=== PATIENT | male | born 1960 | race African-American/Black ===

== ENCOUNTER 2019-02-10 00:22 | Emergency (ER) | payer MEDICAID, OTHER ==
[~2019-02-10] VITALS: Ht 185.4 cm; Wt 88.9 kg
[~2019-02-10 00:22] MED LIST: ABILIFY2 MG ORAL; FLOMAX0.4 MG ORAL; HYDROCHLOROTHIA25 MG ORAL; IBUPROFEN600 MG ORAL; NORCO 5-325 TA1 EACH ORAL; RISPERDAL2 MG ORAL; TAMSULOSIN HCL0.4 MG ORAL
[2019-02-10 01:00] VITALS: BP 158/97
--- NOTE | 2019-02-10 01:00 | NUR ---
ER Nurse Note: Pt came from home c/o prostate pain. Pt stated he "just needs prostate medication". Pt refused treatment to drain bladder; pt reported he has not fully urinated in one day. Pt denies pain meds, exam and states "he is fully healthy". ERMD at pt side; will [facility] to [facility].
--- NOTE | 2019-02-10 01:06 | Emergency Room Report ---
History of Present Illness General Chief Complaint: Male Urogenital Problems Source: Patient Present Illness HPI The patient presents with difficulty urinating. He is run out of his Flomax. He does not have an appointment until February by . This is because his doctors are changing. He denies dysuria, fever, hematuria. He is able to produce urine but it weak stream and he has to bear down in order to urinate. He is refusing further evaluation at this time. The patient reports that he was evaluated with lab test a week ago. He states there were no problems at that time. No fevers, chills, chest pain, palpitations, nausea, vomiting, diarrhea, abdominal pain, shortness of breath, depression, visual changes, headache. Allergies: Coded Allergies: No Known Allergies (Unverified , 02/10/19) Patient History Past Medical History: see triage record Social History: Reports: smoking Social History Narrative With significant other Reviewed Nursing Documentation: PMH: Agreed; PSxH: Agreed Nursing Documentation-PMH Hx Hypertension: Yes Hx Pacemaker: No Hx Asthma: No Hx COPD: No Hx Diabetes: No Hx Cancer: No Hx Dialysis: No Hx Neurological Problems: No Hx Cerebrovascular Accident: No Hx Seizures: No Review of Systems All Other Systems: negative except mentioned in HPI Physical Exam Vital Signs Date Time Temp Pulse Resp B/P (MAP) Pulse Ox O2 Delivery O2 Flow Rate FiO2 02/10/19 00:40 97.9 76 20 158/97 (117) 95 Room Air Sp02 EP Interpretation: reviewed, normal General Appearance: normal inspection, well appearing, no apparent distress Head: normocephalic, atraumatic Eyes: bilateral eye normal inspection, bilateral eye PERRL ENT: hearing grossly normal, normal voice, moist mucus membranes Neck: full range of motion, supple Respiratory: lungs clear, normal breath sounds, no respiratory distress, speaking full sentences Cardiovascular #1: regular rate, rhythm Cardiovascular #2: 2+ radial (R) Gastrointestinal: normal inspection, normal bowel sounds, non tender, soft, no mass, non-distended Genitourinary: no CVA tenderness Musculoskeletal: no calf tenderness Neurologic: alert, oriented x3, grossly normal Psychiatric: mood/affect normal Skin: no rash Medical Decision Making Diagnostic Impression: Primary Impression: BPH (benign prostatic hyperplasia) Qualified Codes: N40.1 - Benign prostatic hyperplasia with lower urinary tract symptoms ER Course Patient presents with request of refill of Flomax. Differential includes benign prostatic hypertrophy, urinary retention, urinary tract infection, medication interaction amongst others. Patient refusing labs. I discussed the risks of renal failure and unrecognized urinary tract infection. He says his labs were normal a week ago. The patient is given a dose of Flomax here. Patient stable for outpatient observation and treatment Last Vital Signs Date Time Temp Pulse Resp B/P (MAP) Pulse Ox O2 Delivery O2 Flow Rate FiO2 02/10/19 01:28 97.9 86 20 158/97 95 Room Air Status: improved Disposition: HOME, SELF-CARE Condition: Improved Scripts Tamsulosin HCl (Flomax) 0.4 Mg Cap.er.24h 0.8 MG ORAL DAILY, #20 CAP Prov: Rich Martinez MD 02/10/19 Rich Martinez MD Feb 10, 2019 01:06
[2019-02-10] MEDS ORDERED: FLOMAX0.4 MG ORAL (01:08)
[2019-02-10] MEDS ORDERED: Tamsulosin 0.4mg cap ORAL ONE (01:13)
[2019-02-10 01:28] VITALS: BP 158/97
--- NOTE | 2019-02-10 01:28 | NUR ---
ER Nurse Note: Pt seen, treated, medically cleared for discharge by ERMD. Discharge instuctions and prescriptions given with repeat verbalization by pt. All orders completed per ERMD orders; pt was able to urinate after medications administered. Pt able to walk with steady gait after urination. Pt a&ox4, VSS, no signs of distress. Pt denies pain. ID band removed. Pt ambulaitory with steady gait, left with all belongings, left with own transportation.
[2019-02-10] MEDS ORDERED: Tamsulosin 0.4mg cap ORAL SCH (21:00)
== END 2019-02-10 01:28 | disposition home or self-care (01) ==
LOC: EMR 01:00
DX: N40.0 Benign prostatic hyperplasia without lower urinary tract symptoms (principal); I10 Essential (primary) hypertension
CPT/HCPCS: 99282

== ENCOUNTER 2019-03-11 04:31 | Emergency (ER) | payer MEDICAID ==
[~2019-03-11] VITALS: Ht 185.4 cm; Wt 88.5 kg
[2019-03-11] MEDS ORDERED: Tamsulosin 0.4mg cap ORAL ONE (04:45)
[2019-03-11] MEDS ORDERED: FLOMAX0.4 MG ORAL (04:46)
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
== END 2019-03-11 05:04 | disposition home or self-care (01) ==
LOC: EMR 04:48
DX: N40.1 Benign prostatic hyperplasia with lower urinary tract symptoms (principal); Z76.0 Encounter for issue of repeat prescription; I10 Essential (primary) hypertension
CPT/HCPCS: 99282

== ENCOUNTER 2019-03-19 05:39 | Emergency (ER) | payer MEDICAID ==
[~2019-03-19] VITALS: Ht 185.4 cm; Wt 88.5 kg
[2019-03-19 05:55] VITALS: BP 156/95
--- NOTE | 2019-03-19 05:55 | NUR ---
ED Nurse Note: pt walked in ER. stating he needs flomax refil until he can see his primary MD. LAUREANO. pt alert x4.
[2019-03-19] MEDS ORDERED: FLOMAX0.4 MG ORAL (06:03)
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
[2019-03-19] MEDS ORDERED: Tamsulosin 0.4mg cap ORAL ONE ×2 (06:05→06:15)
[2019-03-19 06:08] VITALS: BP 158/94
--- NOTE | 2019-03-19 06:10 | NUR ---
ER DISCHARGE NOTE: Patient is cleared to be discharged per ERMD, pt is aox4, on room air, with stable vital signs. pt was given dc and prescription instructions, pt was able to verbalize understanding, pt id band removed without complications. pt is able to ambulate with steady gait. pt took all belongings.
== END 2019-03-19 06:08 | disposition home or self-care (01) ==
LOC: EMR 06:06
DX: N40.1 Benign prostatic hyperplasia with lower urinary tract symptoms (principal); R39.14 Feeling of incomplete bladder emptying; I10 Essential (primary) hypertension
CPT/HCPCS: 99282

== ENCOUNTER 2019-05-01 05:07 | Emergency (ER) | payer MEDICAID ==
[~2019-05-01] VITALS: Ht 185.4 cm; Wt 88.5 kg
[2019-05-01 05:26] VITALS: BP 119/79
[2019-05-01] MEDS ORDERED: Tamsulosin 0.4mg cap ORAL STA (05:26)
--- NOTE | 2019-05-01 05:27 | Emergency Room Report ---
History of Present Illness General Chief Complaint: Medication Refill Source: Patient Present Illness HPI Patient presents requesting refill of Flomax. He states he is having difficulty urinating. He ran out a Flomax 2 days ago. He denies any fevers or chills or dysuria. There is no nausea, vomiting or diarrhea. He states he overslept the appointment to refill his meds with his own doctors. He denies pain at this time. The patient's been seen here multiple times for the same request. Patient is on antipsychotic medications. Allergies: Coded Allergies: No Known Allergies (Unverified , 02/10/19) Patient History Past Medical History: see triage record Social History: Reports: smoking - Although denied to triage nurse Social History Narrative Lives at home - Reviewed Nursing Documentation: PMH: Agreed; PSxH: Agreed Nursing Documentation-PMH Hx Hypertension: Yes Hx Pacemaker: No Hx Asthma: No Hx COPD: No Hx Diabetes: No Hx Cancer: No Hx Dialysis: No Hx Neurological Problems: No Hx Cerebrovascular Accident: No Hx Seizures: No Review of Systems Constitutional: Reports: see HPI Gastrointestinal: Denies: diarrhea, nausea, vomiting Genitourinary: Reports: see HPI Psychiatric: Reports: see HPI Physical Exam Vital Signs Date Time Temp Pulse Resp B/P (MAP) Pulse Ox O2 Delivery O2 Flow Rate FiO2 05/01/19 05:16 98.6 77 18 119/79 (92) 99 Room Air Sp02 EP Interpretation: reviewed, normal General Appearance: well appearing, no apparent distress, GCS 15 Head: normocephalic Eyes: bilateral eye normal inspection, bilateral eye PERRL ENT: moist mucus membranes Neck: full range of motion, supple Respiratory: normal inspection Cardiovascular #1: regular rate, rhythm Gastrointestinal: normal inspection Genitourinary: no CVA tenderness Musculoskeletal: gait/station normal Neurologic: alert, grossly normal Psychiatric: mood/affect normal - Poor insight Skin: no rash Medical Decision Making Diagnostic Impression: Primary Impression: Benign prostatic hyperplasia Qualified Codes: N40.1 - Benign prostatic hyperplasia with lower urinary tract symptoms; R39.11 - Hesitancy of micturition Additional Impression: Encounter for medication refill ER Course Patient with BPH presents requesting med refill. Patient is not toxic and exam and vital signs are stable. A dose of Flomax is given to the patient. No symptoms of infection at this time. Discussed with patient the need for his following up with his own doctors. He lacks the insight that he is responsible for making sure he gets his medications from his doctors. Patient stable for outpatient observation and treatment. Last Vital Signs Date Time Temp Pulse Resp B/P (MAP) Pulse Ox O2 Delivery O2 Flow Rate FiO2 05/01/19 05:36 98.6 76 18 119/79 99 Room Air Status: improved Disposition: HOME, SELF-CARE Condition: Stable Scripts Tamsulosin HCl (Flomax) 0.4 Mg Cap.er.24h 0.8 MG ORAL DAILY, #40 CAP Prov: Rich Martinez MD 05/01/19 Rich Martinez MD May 01, 2019 05:27
[2019-05-01] MEDS ORDERED: FLOMAX0.4 MG ORAL (05:29)
[2019-05-01 05:36] VITALS: BP 119/79
== END 2019-05-01 05:30 | disposition home or self-care (01) ==
LOC: EMR 05:27
DX: N40.1 Benign prostatic hyperplasia with lower urinary tract symptoms (principal); R39.11 Hesitancy of micturition; F17.200 Nicotine dependence, unspecified, uncomplicated; I10 Essential (primary) hypertension; Z76.0 Encounter for issue of repeat prescription
CPT/HCPCS: 99282

== ENCOUNTER 2019-10-31 21:10 | Emergency (ER) | payer MEDICAID ==
[~2019-10-31] VITALS: Ht 185.4 cm; Wt 88.5 kg
--- NOTE | 2019-10-31 21:20 | NUR ---
ED Nurse Note: pt ambulated into ED from home CO pain in penis and penile shaft with redness and minimal swelling. PT VSS with elevated HR. PT states he woke up an hour prior to arriving at hospital and noticed the pain and redness. Awaiting ERMD.
--- NOTE | 2019-10-31 21:23 | NUR ---
ED Nurse Note: ERMD at bedside
[2019-10-31 21:25] VITALS: BP 143/90
[2019-10-31] MEDS ORDERED: FLOMAX0.4 MG ORAL (21:34)
[2019-10-31] MEDS ORDERED: CEPHALEXIN500 MG ORAL (21:34)
--- NOTE | 2019-10-31 21:38 | Emergency Room Report ---
History of Present Illness General Chief Complaint: Male Urogenital Problems Source: Patient Present Illness HPI Patient presents with complaints of irritation to the foreskin area He noticed this for the past several days Denies any penile discharge denies any pain with urination Denies any fevers or chills denies any abdominal pain Denies any vomiting or diarrhea patient also asking for refill of Flomax As he was not able to see his primary physician COVID-19 risk:Contact w/high r: No COVID-19 risk:Travel to affect: No Has patient experienced jim: No Allergies: Coded Allergies: No Known Allergies (Unverified , 02/10/19) Patient History Past Medical History: see triage record Reviewed Nursing Documentation: PMH: Agreed; PSxH: Agreed Nursing Documentation-PMH Past Medical History: No History, Except For Hx Hypertension: Yes Hx Pacemaker: No Hx Asthma: No Hx COPD: No Hx Diabetes: No Hx Cancer: No Hx Dialysis: No History Of Psychiatric Problem: Yes - bipolar Hx Neurological Problems: No Hx Cerebrovascular Accident: No Hx Seizures: No Review of Systems All Other Systems: negative except mentioned in HPI Physical Exam Vital Signs Date Time Temp Pulse Resp B/P (MAP) Pulse Ox O2 Delivery O2 Flow Rate FiO2 10/31/19 21:19 98.4 106 18 143/90 (107) 95 Room Air Sp02 EP Interpretation: reviewed, normal General Appearance: well appearing, no apparent distress Head: normocephalic, atraumatic Eyes: bilateral eye PERRL, bilateral eye EOMI ENT: hearing grossly normal, normal pharynx Neck: full range of motion Respiratory: no respiratory distress, no retraction, no accessory muscle use Gastrointestinal: normal bowel sounds, non tender, soft, no mass, no organomegaly, non-distended, no guarding, no hernia, no pulsatile mass, no rebound Genitourinary: other - Evidence of some mild erythema and irritation of the foreskin consistent with balanitis Musculoskeletal: normal inspection Neurologic: motor strength/tone normal, child care director III-XII nml as tested, oriented x3 , sensory intact, responsive Psychiatric: mood/affect normal Skin: other - As above Lymphatic: normal inspection, no adenopathy Medical Decision Making Diagnostic Impression: Primary Impression: balanitis ER Course Given the patient's history and findings it is consistent with balanitis patient is encouraged to follow-up with primary doctor for further STD testing as needed At this time no complaints of penile discharge Or fever Patient was provided discharge instructions also given a refill for his Flomax that he requested Last Vital Signs Date Time Temp Pulse Resp B/P (MAP) Pulse Ox O2 Delivery O2 Flow Rate FiO2 10/31/19 21:19 98.4 106 18 143/90 (107) 95 Room Air Status: unchanged Disposition: HOME, SELF-CARE Condition: Improved Scripts Tamsulosin HCl (Flomax) 0.4 Mg Cap.er.24h 0.4 MG ORAL BID, #30 CAP Prov: Chloé García DO 10/31/19 Cephalexin* (KEFLEX*) 500 Mg Capsule 500 MG ORAL EVERY 6 HOURS for 5 Days, CAP Prov: Chloé García DO 10/31/19 Referrals: [facility] Patient Instructions: Lisa Additional Instructions: Patient is provided with the discharge instructions notified to follow up with primary doctor in the next 2-3 days otherwise return to the er with any worsening symptoms. Please note that this report is being documented using [employer] technology. This can lead to erroneous entry secondary to incorrect interpretation by the dictating instrument. Chloé García DO Oct 31, 2019 21:38
[2019-10-31 21:43] VITALS: BP 143/90
--- NOTE | 2019-10-31 21:43 | NUR ---
ER DISCHARGE NOTE: Patient is cleared to be discharged home per ERMD, pt is aox4, on room air, with stable vital signs. pt was given dc and prescription instructions, pt was able to verbalize understanding, pt id band removed. pt is able to ambulate with steady gait. pt took all belongings.
== END 2019-10-31 21:43 | disposition home or self-care (01) ==
LOC: EMR 21:35
DX: N48.1 Balanitis (principal); I10 Essential (primary) hypertension; F31.9 Bipolar disorder, unspecified
CPT/HCPCS: 99282

== ENCOUNTER 2019-11-26 11:29 | Emergency (ER) | payer MEDICAID ==
[~2019-11-26] VITALS: Ht 185.4 cm; Wt 88.0 kg
[~2019-11-26 11:29] MED LIST changes: +CEPHALEXIN500 MG ORAL
[2019-11-26 11:45] VITALS: BP 149/97
--- NOTE | 2019-11-26 11:46 | NUR ---
ED Nurse Note: wheeled in to ED for medrefill for Flomax 4mg BID. Denies any pain, SOB/CP/retention.
[2019-11-26] MEDS ORDERED: FLOMAX0.4 MG ORAL (11:47)
[2019-11-26 11:51] VITALS: BP 149/97
--- NOTE | 2019-11-26 11:52 | Emergency Room Report ---
History of Present Illness General Chief Complaint: Medication Refill Source: Patient Present Illness HPI Disclaimer: Please note that this report is being documented using [employer] technology. This can lead to erroneous entry secondary to incorrect interpretation by the dictating instrument. HPI: 59-year-old male history of BPH presents for evaluation of medication refill. He typically takes 0.8 mg of tamsulosin daily but ran out 2 days ago. Unable to refill his medications at clinic over the closings due to the jim virus pandemic. He states his urination is getting slightly more difficult but denies abdominal pain, dysuria, hematuria, fever, chills or other changes in his health. Allergies: Coded Allergies: No Known Allergies (Unverified , 02/10/19) COVID-19 Screening Contact w/high risk pt: No Recent Travel to affected area: No Experienced COVID-19 symptoms?: No Nursing Documentation-PMH Hx Hypertension: Yes Hx Pacemaker: No Hx Asthma: No Hx COPD: No Hx Diabetes: No Hx Cancer: No Hx Dialysis: No Hx Neurological Problems: No Hx Cerebrovascular Accident: No Hx Seizures: No Review of Systems All Other Systems: negative except mentioned in HPI Physical Exam Vital Signs Date Time Temp Pulse Resp B/P (MAP) Pulse Ox O2 Delivery O2 Flow Rate FiO2 11/26/19 11:40 97.9 82 19 149/97 (114) 97 Room Air General: Awake and alert, no acute distress HEENT: NC/AT. EOMI. Resp: Normal work of breathing Skin: Intact. No abrasions, laceration or rash over the exposed skin MSK: Normal tone and bulk. Moving all extremities. No obvious deformity. Neuro: Awake and alert. Mentating appropriately Medical Decision Making Diagnostic Impression: Primary Impression: Encounter for medication refill ER Course 59-year-old male presents for evaluation of medication refill of tamsulosin after running out 2 days ago. No acute distress, no other complaints. Unable to see his PMD or clinic due to the closings over coronavirus. We will refill his tamsulosin for a month. He is well-appearing otherwise and do not believe he requires emergent labs or imaging at this time. We will follow-up with his PMD. Instructed to return with new or worsening symptoms. He understands and agrees with this treatment plan. Last Vital Signs Date Time Temp Pulse Resp B/P (MAP) Pulse Ox O2 Delivery O2 Flow Rate FiO2 4/13/20 11:45 97.9 82 19 149/97 97 Room Air Disposition: HOME, SELF-CARE Condition: Stable Scripts Tamsulosin HCl (Flomax) 0.4 Mg Cap.er.24h 0.8 MG ORAL DAILY for 30 Days, #60 CAP Prov: Nakul Dai MD 11/26/19 Additional Instructions: Please follow-up with your primary care doctor in the next 1 to 3 days to discuss this emergency department visit and for reevaluation. If you have any new or worsening symptoms please return to the emergency department for reevaluation. Please note that this report is being documented using [employer] technology. This can lead to erroneous entry secondary to incorrect interpretation by the dictating instrument. Nakul Dai MD Nov 26, 2019 11:52
--- NOTE | 2019-11-26 11:52 | NUR ---
ED Nurse Note: Pt cleared by health care Provider for discharge. DC instructions/prescription was given and explained to pt and verbalized understanding of teachings. All medical deviecs such as ID band removed. Pt is AAO x4, ambulatory and left with all personal belongings.
== END 2019-11-26 11:55 | disposition home or self-care (01) ==
LOC: EMR 11:50
DX: Z76.0 Encounter for issue of repeat prescription (principal); R39.198 Other difficulties with micturition; I10 Essential (primary) hypertension
CPT/HCPCS: 99282

== ENCOUNTER 2020-04-15 12:47 | Emergency (ER) | payer MEDICAID ==
[~2020-04-15] VITALS: Ht 185.4 cm; Wt 88.5 kg
[2020-04-15] MEDS ORDERED: Morphine Sulfate 2mg/ml Inj(IV/IM USE ONLY) IVP ONE (13:00)
[2020-04-15] MEDS ORDERED: Omnipaque-300 100ml vial INJ PRN (13:00)
--- NOTE | 2020-04-15 13:10 | NUR ---
ED Nurse Note: pt walked in to ER from home due to LLQ pain x3 days with diarrhea and gradually got worse. pt aao x4 and ambulatory. pt cooperative but grimacing for severe abdominal pain. pt denied chest pain, SOB, cough, N/V. skin clean and intact.
[2020-04-15 13:31] LABS: BASOPHILS % (AUTO) 1.1 % (0.0-2.0); EOSINOPHILS % (AUTO) 4.4 % (0.0-3.0); HEMATOCRIT 49.3 % (42.0-52.0); HEMOGLOBIN 16.1 G/DL (14.2-18.0); LYMPHOCYTES % (AUTO) 29.6 % (20.0-45.0); MEAN CORPUSCULAR VOLUME 87 FL (80-99); MONOCYTES % (AUTO) 6.8 % (1.0-10.0); NEUTROPHILS % (AUTO) 58.2 % (45.0-75.0); PLATELET COUNT 175 K/UL (150-450); RED BLOOD COUNT 5.65 M/UL (4.70-6.10); RED CELL DISTRIBUTION WIDTH 12.3 % (11.6-14.8)
[2020-04-15 13:40] LABS: ANION GAP 8 mmol/L (5-15); BLOOD UREA NITROGEN 13 mg/dL (7-18); CALCIUM 8.7 MG/DL (8.5-10.1); CARBON DIOXIDE 28 MMOL/L (21-32); CHLORIDE 107 MMOL/L (98-107); CREATININE 1.3 MG/DL (0.55-1.30); POTASSIUM 3.6 MMOL/L (3.5-5.1); SODIUM 143 MMOL/L (136-145)
--- NOTE | 2020-04-15 13:40 | NUR ---
Note souleymane in EDM - 04/15/20 at 1341 by [email or web address] ED Nurse Note: Assisting primary RN for meal break. U/S tech at bedside. Encouraged pateint to provide us urine sample. Urinal at bedside.
--- NOTE | 2020-04-15 13:40 | NUR ---
ED Nurse Note: Assisting primary RN for meal break. U/S tech at bedside. Encouraged pateint to provide us urine sample. Urinal at bedside.
--- NOTE | 2020-04-15 13:42 | NUR ---
ED Nurse Note: Assisting primary RN for meal break. U/S tech at bedside.
[2020-04-15 13:45] LABS: ALANINE AMINOTRANSFERASE 27 U/L (12-78); ALBUMIN 3.3 G/DL (3.4-5.0); ALKALINE PHOSPHATASE 98 U/L (46-116); ASPARTATE AMINO TRANSFERASE 17 U/L (15-37); BILIRUBIN,TOTAL 0.2 MG/DL (0.2-1.0); CREATINE KINASE 265 U/L (26-308)
--- NOTE | 2020-04-15 14:00 | NUR ---
ED Nurse Note: US done at bedside.
--- NOTE | 2020-04-15 14:02 | Emergency Room Report ---
History of Present Illness General Chief Complaint: Abdominal Pain Source: Medical Record Present Illness HPI 59-year-old male with history of BPH currently on tamsulosin here complaining of sudden onset of diffuse abdominal pain specially on the left and right lower quadrant with radiation to scrotum and scrotal swelling that started 3 days ago. Denies hematuria urinary frequency and urgency however complains of dysuria. Denies any fever and chills however complains of nausea but denies vomiting. Complains of few bouts of nonbloody diarrhea. Denies cough and congestion, shortness of breath, headache and dizziness. Has not taken medication for symptom relief. Patient is a tobacco smoker however denies of the drug use. Denies any penile discharge. 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 COVID-19 Screening: Negative COVID-19 COVID-19 Testing Source: last week Patient History Past Medical History: see triage record Past Surgical History: none Pertinent Family History: none Social History: Reports: smoking, alcohol use Immunizations: UTD Reviewed Nursing Documentation: PMH: Agreed; PSxH: Agreed Nursing Documentation-PMH Past Medical History: No History, Except For Hx Hypertension: Yes Hx Pacemaker: No Hx Asthma: No Hx COPD: No Hx Diabetes: No Hx Cancer: No Hx Dialysis: No Hx Neurological Problems: No Hx Cerebrovascular Accident: No Hx Seizures: No Review of Systems All Other Systems: negative except mentioned in HPI Physical Exam Vital Signs Date Time Temp Pulse Resp B/P (MAP) Pulse Ox O2 Delivery O2 Flow Rate FiO2 04/15/20 12:59 97.5 81 16 134/74 (94) 98 Room Air Sp02 EP Interpretation: reviewed, normal General Appearance: alert, GCS 15, non-toxic, mild distress Head: normocephalic, atraumatic Eyes: bilateral eye normal inspection, bilateral eye PERRL ENT: hearing grossly normal, normal pharynx, no angioedema, normal voice Neck: full range of motion, supple/symm/no masses Respiratory: chest non-tender, lungs clear, normal breath sounds, speaking full sentences Cardiovascular #1: regular rate, rhythm, no edema Cardiovascular #2: 2+ carotid (R), 2+ carotid (L), 2+ radial (R), 2+ radial (L) , 2+ dorsalis pedis (R), 2+ dorsalis pedis (L) Gastrointestinal: soft, no mass, no organomegaly, no peritonitis, guarding - Left lower quadrant and suprapubic Rectal: deferred Genitourinary: no CVA tenderness Musculoskeletal: back normal, no calf tenderness Neurologic: alert, motor strength/tone normal, oriented x3, sensory intact, responsive, speech normal Psychiatric: judgement/insight normal, memory normal, mood/affect normal, no suicidal/homicidal ideation Skin: no rash Lymphatic: no adenopathy Medical Decision Making PA Attestation All diagnosis and treatment plans were discussed and reviewed by my supervising physician Dr. Osorio Diagnostic Impression: Primary Impression: Bladder calculi Additional Impressions: Cocaine abuse Methamphetamine abuse Encounter for medication refill ER Course 59-year-old male with history of BPH currently on tamsulosin here complaining of sudden onset of diffuse abdominal pain specially on the left and right lower quadrant with radiation to scrotum and scrotal swelling that started 3 days ago. Denies hematuria urinary frequency and urgency however complains of dysuria. Denies any fever and chills however complains of nausea but denies vomiting. Complains of few bouts of nonbloody diarrhea. Denies cough and congestion, shortness of breath, headache and dizziness. Has not taken medication for symptom relief. Patient is a tobacco smoker however denies of the drug use. Denies any penile discharge. Ddx considered but are not limited to: appendicitis, cholecystis, gastritis, gastroenteritis, UTI, pyelonephritis, SBO, diverticulitis, pancreatitis, scrotal abscess, torsion, varicocele Vital signs: are WNL, pt. is afebrile H&PE are most consistent with: Bladder calculi, cocaine and methamphetamine abuse, medication refill ORDERS: abdominal CT, abdominal pain set, scrotal ultrasound, Motrin, Tylenol, Zofran,tamsulosin ED INTERVENTIONS: Zofran, morphine, NS bolus DISCHARGE: At this time pt. is stable for d/c to home. Will provide printed patient care instructions, and any necessary prescriptions. Care plan and follow up instructions have been discussed with the patient prior to discharge. Take medication as directed, follow-up with your primary care provider and your urologist, avoid using cocaine and methamphetamine, if worsening symptoms return to the emergency room EKG Diagnostic Results Rate: normal Rhythm: NSR ST Segments: no acute changes Other Impression No acute ST changes CT/MRI/US Diagnostic Results CT/MRI/US Diagnostic Results #1: Imaging Test Ordered: Scrotal ultrasound Impression Left testicle within normal limits, no right testicle visualized as it has been removed Specimen removed CT/MRI/US Diagnostic Results #2: Imaging Test Ordered: CT abdomen pelvis with and without contrast Impression Bladder calculi otherwise within normal limits Last Vital Signs Date Time Temp Pulse Resp B/P (MAP) Pulse Ox O2 Delivery O2 Flow Rate FiO2 04/15/20 13:10 88 19 Room Air 04/15/20 12:59 97.5 134/74 (94) 98 Disposition: HOME, SELF-CARE Condition: Stable Patient Instructions: Stimulant Use Disorder-Amphetamines, Stimulant Use Disorder-Cocaine, Abdominal Pain, Adult Additional Instructions: Take medication as directed, follow-up with your primary care provider and your urologist, avoid using cocaine and methamphetamine, if worsening symptoms return to the emergency room Fouzia Murphy Apr 15, 2020 14:02
--- NOTE | 2020-04-15 14:16 | NUR ---
ED Nurse Note: pt taken to CT scan in stable condition.
--- NOTE | 2020-04-15 15:08 | NUR ---
ED Nurse Note: per ERPA pt cannot eat yet. pt informed.
--- NOTE | 2020-04-15 15:10 | NUR ---
ED Nurse Note: pt asked YUDY to go to waiting room and roll picker money from his brother. pt was directed to waiting room to take money himself. pt received a bag from another shawna at waiting room. no nurse or staff was involved in receiving money.
--- NOTE | 2020-04-15 15:24 | Diagnostic Imaging Report ---
Indication: Cough Technique: One view of the chest Comparison: none Findings: The heart size is normal. There is some atelectasis in the right perihilar region. Otherwise clear lungs and pleural spaces. Impression: No acute process
--- NOTE | 2020-04-15 15:29 | NUR ---
ED Nurse Note: pt ambulated to bathroom with steady gait. pt is on the phone, standing, wandering near his bed as speaking on the phone. no distress noted at this time.
[2020-04-15 15:36] LABS: APPEARANCE,URINE CLEAR; BILIRUBIN, URINE NEGATIVE (NEGATIVE); COLOR,URINE YELLOW; GLUCOSE, URINE (UA) NEGATIVE (NEGATIVE); KETONES,URINE NEGATIVE (NEGATIVE); LEUKOCYTE ESTERASE ,URINE 1+ (NEGATIVE); NITRITE,URINE NEGATIVE (NEGATIVE); PH,URINE 6 (4.5-8.0); PROTEIN,URINE NEGATIVE (NEGATIVE); UROBILINOGEN,URINE NORMAL MG/DL (0.0-1.0)
--- NOTE | 2020-04-15 15:49 | Diagnostic Imaging Report ---
Indication: Diffuse abdominal pain, especially left lower quadrant and right lower quadrant there is scrotal swelling Technique: Spiral acquisitions obtained through the abdomen and pelvis. No oral contrast utilized, per emergency room physician request No IV contrast utilized, per referring physician request.. Multiplanar reconstructions were generated. Total dose length product 308 mGycm. CTDIvol(s) 5 mGy. Dose reduction achieved using automated exposure control Comparison: None Findings: Lack of enteric contrast limits assessment of the GI tract. The appendix is normal. There is no evidence of diverticulosis or diverticulitis. No small bowel distention. There is mild wall thickening of the distal esophagus. There is suggestion of wall thickening of the gastric antrum. No free or loculated intraperitoneal gas or fluid is evident. Lack of IV contrast limits assessment of the solid organs. The liver, gallbladder, bile ducts, pancreas, spleen, adrenals, kidneys are all grossly unremarkable. No renal or ureteral calculi, hydronephrosis, or hydroureter. No retroperitoneal or mesenteric mass or adenopathy. The bladder is distended, contains a right posterolateral diverticulum. The diverticulum contains a dependent calculus. There are multiple intraluminal calculi within the main portion of the bladder, dependently to the left of midline. The prostate is enlarged, measuring 7.3 cm transverse by 4.3 cm AP. The included lung bases are clear except for some atelectasis or scarring on the left. Lungs appear mildly hyperinflated. There is mild lumbar levoscoliotic deformity. Impression: Limited assessment of the GI tract, due to lack of enteric contrast administration Possible wall thickening of the gastric antrum. If real, could indicate peptic ulcer disease or gastritis Possible wall thickening of the distal esophagus, could indicate esophagitis. Correlate with clinical findings or graft distended bladder. Right posterolateral bladder diverticulum noted. Multiple small bladder calculi demonstrated, including one or more calculi within the diverticulum. Prostatomegaly Possible pulmonary hyperinflation Mild lumbar levoscoliosis The CT scanner at [facility] is accredited by the [employer] and the scans are performed using protocols designed to limit radiation exposure to as low as reasonably achievable to attain images of sufficient resolution adequate for diagnostic evaluation.
[2020-04-15] MEDS ORDERED: FLOMAX0.4 MG ORAL (16:07)
[2020-04-15] MEDS ORDERED: ZOFRAN4 M3 ORAL (16:07)
[2020-04-15] MEDS ORDERED: IBUPROFEN600 M1 ORAL (16:07)
[2020-04-15 16:18] VITALS: BP 134/74
--- NOTE | 2020-04-15 16:32 | Diagnostic Imaging Report ---
Indications: Left testicular pain 3 days. History of right orchiectomy Technique: Grayscale and duplex images of the scrotum Comparison: none Findings:The right testicle has been removed The left testicle measures 4.4 cm in length. It demonstrates normal echogenicity and normal Doppler flow. No findings are seen in the area of pain in left inguinal region. There is a small left hydrocele. Impression: Absent right testicle Normal left testicle, demonstrating normal flow. Small left hydrocele. No findings demonstrated in the area of pain in the left inguinal region
== END 2020-04-15 16:15 | disposition home or self-care (01) ==
LOC: EMR 13:15
DX: N21.0 Calculus in bladder (principal); F14.10 Cocaine abuse, uncomplicated; F15.10 Other stimulant abuse, uncomplicated; Z76.0 Encounter for issue of repeat prescription; F17.200 Nicotine dependence, unspecified, uncomplicated; I10 Essential (primary) hypertension
CPT/HCPCS: 36415; 71045; 74176; 76870; 80053; 80307; 81003; 82550; 83690; 84484; 85025; 85610; 85730; 93005; 96374; 96375; G0480; J2270; J2405; J7040; Z7502; 99284

== ENCOUNTER 2020-10-17 15:48 | Emergency (ER) | payer MEDICAID ==
[~2020-10-17] VITALS: Ht 182.9 cm; Wt 81.6 kg
[~2020-10-17 15:48] MED LIST changes: +IBUPROFEN600 M1 ORAL; +ZOFRAN4 M3 ORAL
--- NOTE | 2020-10-17 15:58 | NUR ---
pt arrives with request for refill prescription for flomax
[2020-10-17 15:59] VITALS: BP 163/92
[2020-10-17] MEDS ORDERED: FLOMAX0.4 MG ORAL (16:09)
--- NOTE | 2020-10-17 16:09 | Emergency Room Report ---
History of Present Illness General Chief Complaint: Pain Present Illness HPI 60-year-old male with history of BPH here requesting medication refill on Flomax. Patient reports that has an existing urologist and will see him in 3 weeks. Patient is taking 0.8 mg of Flomax every day. Denies any hematuria, dysuria, abdominal pain, fever and chills. Patient was last seen in April 2020 for renal calculi and prostamegaly. Patient reports that he is stable and does not want any blood work or imaging done today. Patient is aware that needs to take Flomax and not abruptly stand up due to possible hypotension. Allergies: Coded Allergies: No Known Allergies (Unverified , 02/10/19) COVID-19 Screening Contact w/high risk pt: No Recent Travel to affected area: No Experienced COVID-19 symptoms?: No COVID-19 Testing performed CLOUD ADMINISTRATOR: No COVID-19 Screening: Negative COVID-19 Patient History Past Medical History: see triage record Past Surgical History: none Pertinent Family History: none Immunizations: UTD Reviewed Nursing Documentation: PMH: Agreed; PSxH: Agreed Nursing Documentation-PMH Hx Cardiac Problems: No Hx Hypertension: Yes Hx Pacemaker: No Hx Asthma: No Hx COPD: No Hx Diabetes: No Hx Cancer: No Hx Gastrointestinal Problems: No Hx Dialysis: No History Of Psychiatric Problem: No Hx Neurological Problems: No Hx Cerebrovascular Accident: No Hx Seizures: No Review of Systems All Other Systems: negative except mentioned in HPI Physical Exam Vital Signs Date Time Temp Pulse Resp B/P (MAP) Pulse Ox O2 Delivery O2 Flow Rate FiO2 10/17/20 15:55 98.4 83 18 163/92 (115) 95 Room Air Sp02 EP Interpretation: reviewed, normal General Appearance: well appearing, no apparent distress Head: normocephalic, atraumatic ENT: hearing grossly normal, normal voice Neck: full range of motion, supple Respiratory: no retraction, no accessory muscle use Cardiovascular #1: regular rate, rhythm, no edema Gastrointestinal: non tender, soft, no mass, no organomegaly Genitourinary: no CVA tenderness Musculoskeletal: normal range of motion Neurologic: alert, normal gait Psychiatric: mood/affect normal Skin: no rash Lymphatic: no adenopathy Medical Decision Making PA Attestation All diagnoses and treatment plans were reviewed and discussed with my supervising physician Dr. Juan Diagnostic Impression: Primary Impression: Encounter for medication refill ER Course 60-year-old male with history of BPH here requesting medication refill on Flomax. Patient reports that has an existing urologist and will see him in 3 weeks. Patient is taking 0.8 mg of Flomax every day. Denies any hematuria, dysuria, abdominal pain, fever and chills. Patient was last seen in April 2020 for renal calculi and prostamegaly. Patient reports that he is stable and does not want any blood work or imaging done today. Patient is aware that needs to take Flomax and not abruptly stand up due to possible hypotension. Ddx considered but are not limited to: UTI, pyelonephritis, BPH Vital signs: are WNL, pt. is afebrile H&PE are most consistent with: Medication refill for BPH ORDERS: Deferred urine test or blood work. 1 month supply of Flomax ED INTERVENTIONS: 1 dose of Flomax given in ED per his request DISCHARGE: At this time pt. is stable for d/c to home. Will provide printed patient care instructions, and any necessary prescriptions. Care plan and follow up instructions have been discussed with the patient prior to discharge. Advised patient to follow with urologist, take medication as directed, if worsening symptoms return to the emergency room Last Vital Signs Date Time Temp Pulse Resp B/P (MAP) Pulse Ox O2 Delivery O2 Flow Rate FiO2 10/17/20 15:59 98.5 78 18 163/92 97 Room Air Disposition: HOME, SELF-CARE Condition: Stable Scripts Tamsulosin HCl (Flomax) 0.4 Mg Cap.er.24h 0.8 MG ORAL DAILY for 30 Days, #60 CAP Prov: Fouzia Murphy 10/17/20 Patient Instructions: Medicine Refill at the Emergency Department Additional Instructions: Take medication as directed, follow-up with your urologist, if worsening symptoms return to the emergency room Fouzia Murphy Oct 17, 2020 16:09
[2020-10-17] MEDS ORDERED: Tamsulosin 0.4mg cap ORAL SCH (16:15)
== END 2020-10-17 16:23 | disposition home or self-care (01) ==
LOC: EMR 16:17
DX: Z76.0 Encounter for issue of repeat prescription (principal); N40.0 Benign prostatic hyperplasia without lower urinary tract symptoms; I10 Essential (primary) hypertension; Z79.899 Other long term (current) drug therapy
CPT/HCPCS: 99282